=== PATIENT | female | born 1985 | race Hispanic/Latino ===

== ENCOUNTER 2017-02-22 22:58 | Emergency (ER) | payer OTHER ==
[2017-02-22 23:00] VITALS: BMI 26.6
[2017-02-22 23:18] VITALS: BP 149/87; PULSE 83; RESP 18; TEMP 98.5; O2SAT 97
[2017-02-22] MEDS ORDERED: TDAP Vaccine 0.5 mL Syr IM ONE (23:29)
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
== END 2017-02-23 00:14 | disposition home or self-care (01) ==
LOC: H.ER 22:58
DX: S93.401A Sprain of unspecified ligament of right ankle, initial encounter (principal); V03.10XA Pedestrian on foot injured in collision with car, pick-up truck or van in traffic accident, initial encounter; Y92.410 Unspecified street and highway as the place of occurrence of the external cause

== ENCOUNTER 2017-11-28 21:57 | Emergency (ER) | payer OTHER ==
[2017-11-28 21:57] VITALS: BMI 26.6
[2017-11-28 22:16] VITALS: BP 144/106; PULSE 106; RESP 16; TEMP 98.4; O2SAT 100
--- NOTE | 2017-11-28 23:20 | ED PDOC ---
HPI: Dental Pain/Injury Time Seen by Provider: 11/28/17 22:29 Chief Complaint (Nursing): Dental Pain Chief Complaint (Provider): Left lower dental pain History Per: Patient History/Exam Limitations: no limitations Onset/Duration Of Symptoms: Days Current Symptoms Are (Timing): Still Present Additional Complaint(s): PT has appointment in 2 weeks with dentist. Past Medical History Reviewed: Historical Data, Nursing Documentation, Vital Signs Vital Signs: Last Vital Signs Temp 98.4 F 11/28/17 22:12 Pulse 106 H 11/28/17 22:12 Resp 16 11/28/17 22:12 BP 144/106 H 11/28/17 22:12 Pulse Ox 100 11/28/17 22:12 - Medical History PMH: Kidney Stones, Chronic Kidney Disease - Surgical History Surgical History: No Surg Hx - Family History Family History: States: Unknown Family Hx - Immunization History Hx Tetanus Toxoid Vaccination: Yes Hx Influenza Vaccination: No Hx Pneumococcal Vaccination: No - Home Medications Home Medications: Ambulatory Orders Medication Instructions Recorded Amoxicillin/Clavulanate [Augmentin 1 tab PO BID #20 tab 11/28/17 875 MG-125 MG] oxyCODONE/Acetaminophen [Percocet 1 ea PO Q6H PRN #5 tab 11/28/17 5/325 mg Tab] - Allergies Allergies/Adverse Reactions: Allergies Allergy/AdvReac Type Severity Reaction Status Date / Time cashew nut Allergy Mild RASH Verified 11/28/17 22:12 kiwi Allergy Mild ITCHING Verified 11/28/17 22:12 clindamycin Allergy RASH Verified 11/28/17 22:12 Review of Systems ROS Statement: Except As Marked, All Systems Reviewed And Found Negative Constitutional: Negative for: Fever, Chills ENT: Positive for: Other (Dental pain) Physical Exam - Reviewed Nursing Documentation Reviewed: Yes Vital Signs Reviewed: Yes - Physical Exam Appears: Positive for: Well, Non-toxic, No Acute Distress Head Exam: Positive for: ATRAUMATIC, NORMAL INSPECTION, NORMOCEPHALIC Skin: Positive for: Warm. Negative for: Normal Color (Partial eruption of the left lower molar, (+) dental decay) Eye Exam: Positive for: Normal appearance ENT: Positive for: Normal ENT Inspection, Pharynx Is, Other ((+) edema of the anterior cervical lymph nodes on neck ) Neck: Positive for: Normal, Painless ROM Cardiovascular/Chest: Positive for: Regular Rate, Rhythm Respiratory: Positive for: CNT, Normal Breath Sounds Gastrointestinal/Abdominal: Positive for: Normal Exam, Bowel Sounds, Soft Back: Positive for: Normal Inspection Extremity: Positive for: Normal ROM Neurologic/Psych: Positive for: Alert, Oriented - ECG O2 Sat by Pulse Oximetry: 100 Pulse Ox Interpretation: Normal Disposition - Clinical Impression Clinical Impression: Pain, dental - Patient ED Disposition Is Patient to be Admitted: No - Disposition Disposition: Routine/Home Disposition Time: 23:20 Condition: GOOD Prescriptions: Amoxicillin/Clavulanate [Augmentin 875 MG-125 MG] 1 tab PO BID #20 tab oxyCODONE/Acetaminophen [Percocet 5/325 mg Tab] 1 ea PO Q6H PRN #5 tab PRN Reason: Pain, Severe (8-10) Instructions: Dental Pain (DC)
== END 2017-11-28 23:43 | disposition home or self-care (01) ==
LOC: H.ER 21:57
DX: Z87.442 Personal history of urinary calculi (principal); N18.9 Chronic kidney disease, unspecified; K08.89 Other specified disorders of teeth and supporting structures

== ENCOUNTER 2018-01-06 12:44 | Emergency (ER) | payer OTHER ==
[2018-01-06 12:45] VITALS: BMI 26.6
[2018-01-06 13:01] VITALS: BP 144/86; PULSE 78; RESP 18; TEMP 98.8; O2SAT 100
--- NOTE | 2018-01-06 14:40 | ED PDOC ---
Lower Extremity Pain/Injury Time Seen by Provider: 01/06/18 13:06 Chief Complaint (Nursing): Lower Extremity Problem/Injury Chief Complaint (Provider): Left foot irritation, calf pain History Per: Patient History/Exam Limitations: no limitations Onset/Duration Of Symptoms: Hrs Current Symptoms Are (Timing): Still Present Additional Complaint(s): 32 year old female presents to the ED complaining of left foot and calf swelling. Patient reports she saw her left foot was red and swollen and soaked her foot in Epsom salt. Patient states that treatment did not work and the swelling and redness ended up expanding to her left calf. 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 Patient states her feet were previously infected. Patient reports she has a history of DVT. Denies itching and shortness of breath. PMD: None - Risk Factors DVT Risk Factors: Pos: History Of DVT Past Medical History Reviewed: Historical Data, Nursing Documentation, Vital Signs Vital Signs: Last Vital Signs Temp 98.8 F 01/06/18 12:58 Pulse 78 01/06/18 12:58 Resp 18 01/06/18 12:58 BP 144/86 01/06/18 12:58 Pulse Ox 100 01/06/18 12:58 - Medical History PMH: Deep Vein Thrombosis, Kidney Stones, Chronic Kidney Disease - Surgical History Surgical History: No Surg Hx - Family History Family History: States: Unknown Family Hx - Immunization History Hx Tetanus Toxoid Vaccination: Yes Hx Influenza Vaccination: No Hx Pneumococcal Vaccination: No - Home Medications Home Medications: Ambulatory Orders Medication Instructions Recorded Amoxicillin/Clavulanate [Augmentin 1 tab PO BID #20 tab 11/28/17 875 MG-125 MG] oxyCODONE/Acetaminophen [Percocet 1 ea PO Q6H PRN #5 tab 11/28/17 5/325 mg Tab] Cephalexin [Keflex] 500 mg PO BID #14 capsule 01/06/18 Clotrimazole 1% Cream [Lotrimin 1% 1 applic TOP BID #2 tube 01/06/18 CREAM] - Allergies Allergies/Adverse Reactions: Allergies Allergy/AdvReac Type Severity Reaction Status Date / Time cashew nut Allergy Mild RASH Verified 11/28/17 22:12 kiwi Allergy Mild ITCHING Verified 11/28/17 22:12 clindamycin Allergy RASH Verified 11/28/17 22:12 Review of Systems ROS Statement: Except As Marked, All Systems Reviewed And Found Negative Respiratory: Negative for: Shortness of Breath Musculoskeletal: Positive for: Leg Pain (left calf swollen and red. ), Foot Pain (left foot swollen and red) Skin: Negative for: Other (itchyness) Physical Exam - Reviewed Nursing Documentation Reviewed: Yes Vital Signs Reviewed: Yes - Physical Exam Appears: Positive for: Well, Non-toxic, No Acute Distress Head Exam: Positive for: ATRAUMATIC, NORMAL INSPECTION, NORMOCEPHALIC Skin: Positive for: Normal Color, Warm, Dry Eye Exam: Positive for: Normal appearance ENT: Positive for: Normal ENT Inspection Neck: Positive for: Normal, Painless ROM Cardiovascular/Chest: Positive for: Regular Rate, Rhythm. Negative for: Gallop , Murmur, Irregularly Irregular Respiratory: Positive for: Normal Breath Sounds. Negative for: Decreased Breath Sounds, Rales, Rhonchi, Wheezing, Respiratory Distress Extremity: Positive for: Normal ROM, Calf Tenderness (left calf tenderness), Other (callus on ball of left foot, .5 cm x 1 cm of open skin on ball of foot) Neurologic/Psych: Positive for: Alert, Oriented (x 3 ) - ECG O2 Sat by Pulse Oximetry: 100 (RA) Pulse Ox Interpretation: Normal Medical Decision Making Medical Decision Making: Time: 1313 Plan: --Duplex Lower Extremity Vein Left US Time: 1445 US (-) for DVT Discussed keeping shoes and feet dry. Keflex for any worsening pain or redness. Scribe Attestation: Documented by Татьяна Landeros, acting as a scribe for Asia Gurrola PA-C. Provider Scribe Attestation: All medical record entries made by the Scribe were at my direction and personally dictated by me. I have reviewed the chart and agree that the record accurately reflects my personal performance of the history, physical exam, medical decision making, and the department course for this patient. I have also personally directed, reviewed, and agree with the discharge instructions and disposition. Disposition - Clinical Impression Clinical Impression: Skin abnormality - Patient ED Disposition Is Patient to be Admitted: No Counseled Patient/Family Regarding: Diagnosis, Need For Followup - Disposition Disposition: Routine/Home Disposition Time: 14:38 Condition: GOOD Additional Instructions: Antibiotics if redness returns. Prescriptions: Cephalexin [Keflex] 500 mg PO BID #14 capsule Clotrimazole 1% Cream [Lotrimin 1% CREAM] 1 applic TOP BID #2 tube Instructions: Cephalexin Forms: [employer] (Romanian)
--- NOTE | 2018-01-06 16:15 | US ---
HISTORY: Move PRIORS: None. FINDINGS: 2-D, color and duplex Doppler analysis of the lower extremity venous circulation using routine protocol from the femoral veins through the popliteal veins. Venous compressibility: Normal. Flow and augmentation patterns: Normal. Visualized veins upper third of calf: Normal. [place] cyst: None. IMPRESSION: No sonographic or Doppler evidence for DVT in left lower extremity.
== END 2018-01-06 14:53 | disposition home or self-care (01) ==
LOC: H.ER 12:44
DX: L98.9 Disorder of the skin and subcutaneous tissue, unspecified (principal); R60.0 Localized edema; Z86.718 Personal history of other venous thrombosis and embolism

== ENCOUNTER 2018-06-02 22:51 | Emergency (ER) | payer SELFPAY ==
[2018-06-02 22:51] VITALS: BMI 26.6
[2018-06-02 22:58] VITALS: BP 142/90; PULSE 89; RESP 18; TEMP 98.6; O2SAT 99
--- NOTE | 2018-06-02 23:12 | ED PDOC ---
HPI: Dental Pain/Injury Time Seen by Provider: 06/02/18 23:00 Chief Complaint (Nursing): Dental Pain Chief Complaint (Provider): DENTAL PAIN History Per: Patient (32 Y/O FEMALE HERE WITH LEFT DENTAL PAIN/FACIAL SWELLING. HAS HAD BROKEN TOOTH BUT UNABLE TO GET APPT OF YET. DENIES ANY FEVERS/ CHILLS.) Past Medical History Reviewed: Historical Data, Nursing Documentation, Vital Signs Vital Signs: Last Vital Signs Temp 98.6 F 06/02/18 22:55 Pulse 89 06/02/18 22:55 Resp 18 06/02/18 22:55 BP 142/90 06/02/18 22:55 Pulse Ox 99 06/02/18 22:55 - Medical History PMH: Deep Vein Thrombosis, Kidney Stones, Chronic Kidney Disease - Family History Family History: States: Unknown Family Hx - Immunization History Hx Tetanus Toxoid Vaccination: Yes Hx Influenza Vaccination: No Hx Pneumococcal Vaccination: No - Home Medications Home Medications: Ambulatory Orders Medication Instructions Recorded Amoxicillin/Clavulanate [Augmentin 1 tab PO BID #20 tab 11/28/17 875 MG-125 MG] oxyCODONE/Acetaminophen [Percocet 1 ea PO Q6H PRN #5 tab 11/28/17 5/325 mg Tab] Cephalexin [Keflex] 500 mg PO BID #14 capsule 01/06/18 Clotrimazole 1% Cream [Lotrimin 1% 1 applic TOP BID #2 tube 01/06/18 CREAM] Naproxen 375 mg PO Q8 PRN #21 tablet 06/02/18 Naproxen 375 mg PO Q8 PRN #21 tablet 06/02/18 Penicillin VK [Penicillin VK Tab] 1 tab PO QID #40 tab 06/02/18 Penicillin VK [Penicillin VK Tab] 1 tab PO QID #40 tab 06/02/18 - Allergies Allergies/Adverse Reactions: Allergies Allergy/AdvReac Type Severity Reaction Status Date / Time cashew nut Allergy Mild RASH Verified 06/02/18 22:55 kiwi Allergy Mild ITCHING Verified 06/02/18 22:55 clindamycin Allergy RASH Verified 06/02/18 22:55 Review of Systems ROS Statement: Except As Marked, All Systems Reviewed And Found Negative Physical Exam - Reviewed Nursing Documentation Reviewed: Yes Vital Signs Reviewed: Yes - Physical Exam Appears: Positive for: Well, Non-toxic, No Acute Distress Head Exam: Positive for: ATRAUMATIC, NORMAL INSPECTION, NORMOCEPHALIC Skin: Positive for: Normal Color, Warm, DRY Eye Exam: Positive for: EOMI, Normal appearance, PERRL ENT: Positive for: Other (LEFT FACIAL SWELLING MILD. POOR DENTITION NOTED UPPER MAXILLARY LEFT REGION OF FACE. NO GINGIVAL SWELLING/ABSCESS.). Negative for: Normal ENT Inspection Neck: Positive for: Normal, Painless ROM Cardiovascular/Chest: Positive for: Regular Rate, Rhythm Respiratory: Positive for: CNT, Normal Breath Sounds Gastrointestinal/Abdominal: Positive for: Normal Exam, Soft Back: Positive for: Normal Inspection Extremity: Positive for: Normal ROM Neurologic/Psych: Positive for: Alert, Oriented - ECG O2 Sat by Pulse Oximetry: 99 Disposition - Clinical Impression Clinical Impression: Dental caries, Toothache - Patient ED Disposition Is Patient to be Admitted: No - Disposition Disposition: Routine/Home Disposition Time: 23:11 Condition: FAIR Prescriptions: Naproxen 375 mg PO Q8 PRN #21 tablet PRN Reason: Pain, Moderate (4-7) Naproxen 375 mg PO Q8 PRN #21 tablet PRN Reason: Pain, Moderate (4-7) Penicillin VK [Penicillin VK Tab] 1 tab PO QID #40 tab Penicillin VK [Penicillin VK Tab] 1 tab PO QID #40 tab Instructions: Dental Pain
== END 2018-06-02 23:28 | disposition home or self-care (01) ==
LOC: H.ER 22:51
DX: K02.9 Dental caries, unspecified (principal)

== ENCOUNTER 2018-07-26 23:17 | Emergency (ER) | payer SELFPAY ==
[2018-07-26 23:17] VITALS: BMI 26.6
[2018-07-26 23:35] VITALS: BP 143/88; PULSE 90; RESP 17; TEMP 98.7; O2SAT 98
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
--- NOTE | 2018-07-27 10:53 | CT ---
Date of service: 07/27/2018 PROCEDURE: CT HEAD WITHOUT CONTRAST. HISTORY: head injury headache COMPARISON: None available. TECHNIQUE: Axial computed tomography images were obtained through the head/brain without intravenous contrast. Supplemental Coronal and Sagittal projections created and reviewed. Radiation dose: Total exam DLP = 757.48 mGy-cm. This CT exam was performed using one or more of the following dose reduction techniques: Automated exposure control, adjustment of the mA and/or kV according to patient size, and/or use of iterative reconstruction technique. FINDINGS: HEMORRHAGE: No intracranial hemorrhage. BRAIN: No mass effect or edema. No atrophy or chronic microvascular ischemic changes. VENTRICLES: Unremarkable. No hydrocephalus. CALVARIUM: Unremarkable. PARANASAL SINUSES: Unremarkable as visualized. No significant inflammatory changes. MASTOID AIR CELLS: Unremarkable as visualized. No inflammatory changes. OTHER FINDINGS: None. IMPRESSION: No acute intracranial abnormalities. No significant findings to account for the clinical presentation. Concordant results (preliminary interpretation) provided by [employer]. Procedure Completed: 00:18. Preliminary Report: Dictated and Authenticated: 00:40. Final Interpretation: 10:49. July 27, 2018
== END 2018-07-27 01:30 | disposition home or self-care (01) ==
LOC: H.ER 23:17
DX: S06.0X0A Concussion without loss of consciousness, initial encounter (principal); W19.XXXA Unspecified fall, initial encounter; Y92.002 Bathroom of unspecified non-institutional (private) residence as the place of occurrence of the external cause; Z86.718 Personal history of other venous thrombosis and embolism